=== PATIENT | female | born 2000 | race Caucasian/White ===

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

== ENCOUNTER 2021-01-25 09:29 | Emergency (ER) | payer BC | END 2021-01-25 09:40 | disposition home or self-care (01) | LOC: VM.ED 09:29 | DX: Z53.21 Procedure and treatment not carried out due to patient leaving prior to being seen by health care provider (principal) ==

== ENCOUNTER 2022-03-29 02:00 | Emergency (ER) | payer BC ==
[2022-03-29] MEDS ORDERED: Ketorolac 30 MG/ML SDV IM ONE (02:11)
[2022-03-29] MEDS ORDERED: diphenhydrAMINE 50 MG/ML SDV IM ONE (02:11)
[2022-03-29 02:34] VITALS: BP 120/70; PULSE 81
== END 2022-03-29 03:06 | disposition home or self-care (01) ==
LOC: VM.ED 02:00
DX: G43.909 Migraine, unspecified, not intractable, without status migrainosus (principal)
CPT/HCPCS: 96372; 99283; J1200; J1885; J3230